=== PATIENT | male | born 1995 | race African-American/Black ===

== ENCOUNTER 2021-01-06 01:46 | Emergency (ER) | payer OTHER ==
[~2021-01-06] VITALS: Ht 177.8 cm; Wt 77.1 kg
[2021-01-06] MEDS ORDERED: IBUPROFEN 600 MG TABLET PO ONE (03:00)
[2021-01-06] MEDS ORDERED: HYDR-4209 PO (03:15)
[2021-01-06] MEDS ORDERED: IBUPROFEN 600 MG TABLET ONE (03:20)
--- NOTE | 2021-01-06 03:33 | NUR ---
pt ok to be discharged per dr angel. Patient discharged to home in stable condition. Written and verbal after care instructions given. Patient verbalizes understanding of instruction.Patient is awake and alert to self, day, and place. Pt ambulatory with a steady gait
[2021-01-06 03:35] VITALS: BP 128/79
== END 2021-01-06 03:35 | disposition home or self-care (01) ==
LOC: ER 01:58
DX: R07.89 Other chest pain (principal); J45.909 Unspecified asthma, uncomplicated; Z91.013 Allergy to seafood
CPT/HCPCS: 71045-TC